=== PATIENT | female | born 1930 | race American Indian/Alaskan Native ===

== ENCOUNTER 2017-10-05 16:05 | Emergency (ER) | payer MEDICARE ==
[2017-10-05] MEDS ORDERED: ZOFRAN IV ONE (17:05)
[2017-10-05] MEDS ORDERED: MORPHINE IV ONE (17:05)
[2017-10-05 17:07] LABS: Basophils # (Auto) 0.1 K/mm3 (0.0-0.1); Basophils % (Auto) 0.7 % (0.0-1.8); Eosinophils % (Auto) 0.3 % (0.0-4.3); Hematocrit 37.7 % (30.3-42.9); Hemoglobin 12.3 gm/dl (10.1-14.3); Lymphocytes # (Auto) 0.9 K/mm3 (1.2-5.4); Lymphocytes % (Auto) 12.1 % (13.4-35.0); Mean Corpuscular HGB Conc 33 % (30-34); Mean Corpuscular Hemoglobin 29 pg (28-32); Mean Corpuscular Volume 88 fl (79-97); Monocytes # (Auto) 0.3 K/mm3 (0.0-0.8); Monocytes % (Auto) 4.6 % (0.0-7.3); Platelet Count 238 K/mm3 (140-440); Red Blood Count 4.28 M/mm3 (3.65-5.03); Red Cell Distribution Width 13.9 % (13.2-15.2)
--- NOTE | 2017-10-05 17:11 | Emergency Department Report ---
HPI - General Chief Complaint: Fall Time Seen by Provider: 10/05/17 16:49 - HPI HPI: Room 6 The patient is an 87-year-old female presenting with a chief complaint of pain after a dresser fell on top of her. The patient lives at home alone and the last time anyone spoke with her was last night at approximately 19:00. When family came to bring her lunch this afternoon at approximately 13:00 they found the patient in the bedroom floor propped up against the bed with a chest/ dresser laying on top of her. The patient has a history of dementia states she does not remember what happened. Family states the patient initially mentioned to them that she believed the event occurred at 06:30 this morning. Patient complains of pain in her head, back and abdomen for this issue hurts "all over. " ED Past Medical Hx - Past Medical History Previous Medical History?: Yes Hx Hypertension: Yes Hx GERD: Yes Hx Arthritis: Yes Hx Dementia: Yes Additional medical history: OVERACTIVE BLADDER - Surgical History Past Surgical History?: Yes Additional Surgical History: Varicose vein surgery 40 years ago - Family History Family history: no significant - Social History Smoking Status: Never Smoker Substance Use Type: None - Medications Home Medications: Home Medications Medication Instructions Recorded Confirmed Last Taken Type Atenolol [Tenormin] 100 mg PO DAILY 06/28/13 04/19/14 04/18/14 History Ranitidine HCl [Ranitidine 150mg 150 mg PO BID 06/28/13 04/19/14 04/18/14 History Cap] Hydralazine HCl [Apresoline TAB] 25 mg PO DAILY 04/18/14 04/19/14 04/18/14 History Loratadine [Claritin RAPDIS] 1 tab PO DAILY 04/18/14 04/19/14 04/18/14 History Amlodipine Bes/Olmesartan Med 1 tab PO DAILY 04/19/14 04/19/14 04/19/14 History [Phuong 10-40 mg] Amlodipine Besylate 10 mg PO DAILY 04/19/14 04/19/14 04/19/14 History Clonidine HCl 0.1 mg PO QPM 04/19/14 04/19/14 04/18/14 History traMADol [Ultram 50 MG tab] 50 mg PO Q8HR PRN 04/19/14 04/19/14 04/18/14 History HYDROcodone/APAP 5-325 [[place] 1 - 2 each PO Q6HR PRN #14 tablet 10/05/17 Unknown Rx 5/325] Ibuprofen [Motrin] 800 mg PO Q8HR PRN #20 tablet 10/05/17 Unknown Rx ED Review of Systems ROS: Stated complaint: FALL Other details as noted in HPI Gastrointestinal: abdominal pain Musculoskeletal: back pain, myalgia Skin: lesions Neurological: headache Physical Exam - Physical Exam Vital Signs: Vital Signs 10/05/17 10/05/17 16:35 16:40 Temperature 97.8 F Pulse Rate 72 Respiratory 18 Rate Blood Pressure 191/85 [Left] O2 Sat by Pulse 98 Oximetry Physical Exam: GENERAL: The patient is well-developed well-nourished female lying on stretcher not appearing to be in acute distress. [] HEENT: Normocephalic. Atraumatic. Extraocular motions are intact. Patient has moist mucous membranes. NECK: Supple. Trachea midline. No axial step off CHEST/LUNGS: Clear to auscultation. There is no respiratory distress noted. HEART/CARDIOVASCULAR: Regular. There is no tachycardia. There is no gallop rub or murmur. ABDOMEN: Abdomen is soft, nontender to palpation however patient complained of pain without palpitation. Patient has normal bowel sounds. There is no abdominal distention. SKIN: There is ecchymosis to the inner right bicep and right forearm. There is no edema. There is no diaphoresis. NEURO: The patient is awake and alert. The patient is cooperative. The patient has no focal neurologic deficits. The patient has normal speech MUSCULOSKELETAL: There is no limitation range of motion. ED Course Vital Signs 10/05/17 10/05/17 16:35 16:40 Temperature 97.8 F Pulse Rate 72 Respiratory 18 Rate Blood Pressure 191/85 [Left] O2 Sat by Pulse 98 Oximetry - Reevaluation(s) Reevaluation #1: 10/05/17 20:46 Patient states she is feeling "good." - Consultations Consultation #1: 10/05/17 20:27 Orthopedic surgery paged 10/05/17 20:[address] abdomen and pelvis findings discussed Dr. Hannah. Request patient/ family contact office for follow-up appointment this week or next ED Medical Decision Making - Lab Data Result diagrams: 10/05/17 16:52 10/05/17 16:52 Laboratory Tests 10/05/17 10/05/17 16:52 16:52 WBC 7.1 RBC 4.28 Hgb 12.3 Hct 37.7 MCV 88 MCH 29 MCHC 33 RDW 13.9 Plt Count 238 Lymph % (Auto) 12.1 L [place] % (Auto) 4.6 Eos % (Auto) 0.3 Baso % (Auto) 0.7 Lymph # 0.9 L [place] # 0.3 Eos # 0.0 Baso # 0.1 Seg Neutrophils % 82.3 H Seg Neutrophils # 5.9 Sodium 138 Potassium 4.6 Chloride 99.5 Carbon Dioxide 23 Anion Gap 20 BUN 18 H Creatinine 0.8 Estimated GFR > 60 BUN/Creatinine Ratio 23 Glucose 114 H Calcium 9.2 Total Creatine Kinase 414 H CK-MB (CK-2) 6.8 H CK-MB (CK-2) Rel Index 1.6 Troponin T < 0.010 - EKG Data -: EKG Interpreted by Oh EKG shows normal: sinus rhythm Rate: normal - EKG Data When compared to previous EKG there are: previous EKG unavailable Interpretation: other (no ischemic changes seen) - Radiology Data Radiology results: report reviewed (CT head, CT cervical spine, CT abdomen and pelvis), image reviewed (CT head, CT cervical spine, CT abdomen and pelvis) FINAL REPORT PROCEDURE: CT HEAD/BRAIN WO CON TECHNIQUE: Computerized tomography of the head was performed without contrast material. HISTORY: pain after dresser fell on top of her COMPARISON: No prior studies are available for comparison. FINDINGS: Skull and scalp: Normal. Paranasal sinuses: Normal. Ventricles and subarachnoid spaces: Normal. Cerebrum: No evidence of hemorrhage, acute infarction or mass . Cerebellum and brainstem: No evidence of hemorrhage, acute infarction or mass. Vasculature: Normal. Comments: Mild to moderate atrophy. Parafalcine calcifications. 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 No intracranial bleed or skull fracture seen Transcribed By: WEP Dictated By: TYREE NGUYEN MD Electronically Authenticated By: TYREE NGUYEN MD Signed Date/Time: 10/05/171424 DD/ 24 TD/TT: 10/05/171424 FINAL REPORT PROCEDURE: CT ABDOMEN PELVIS W CON TECHNIQUE: Computerized axial tomography of the abdomen and pelvis was performed after the IV injection of iodinated nonionic contrast. HISTORY: pain after dresser fell on top of her COMPARISON: None FINDINGS: Visualized lower thorax: No significant abnormality. Liver: Normal size and attenuation. Spleen: Normal size and attenuation. Gallbladder and biliary system: Normal. Pancreas: Normal. Adrenals: Normal. Kidneys: Normal. GI tract: Normal. Lymph nodes and mesentery: Normal. Vasculature: Normal. Bladder: Normal. Reproductive organs: Normal. Peritoneum: No free fluid. Musculoskeletal structures: Mild to moderate compression deformity upper aspect of L3. On axial sequences questionable findings to suggest possible acute on chronic component. Consider followup MRI to further corroborate. Severe disc space narrowing L4-5 L5-S1. Multilevel facet arthropathy. Chronic endplate deformities upper L2 lower T12 Other: None. IMPRESSION: Mild to moderate compression deformity of L3 of indeterminate age likely predominately chronic however mild acute on chronic fracture not excludable. Followup MRI is advised. No prior study on file. Transcribed By: WEP Dictated By: TYREE NGUYEN MD Electronically Authenticated By: TYREE NGUYEN MD Signed Date/Time: 10/05/171550 DD/ 50 TD/TT: 10/05/171550 - Differential Diagnosis rhabdomyolysis, ICH, cervical fracture, intra-abdominal injury Critical care attestation.: If time is entered above; I have spent that time in minutes in the direct care of this critically ill patient, excluding procedure time. ED Disposition Clinical Impression: Compression fracture of L3 lumbar vertebra, Thyroid mass, Contusion of right arm, Contusion of right leg, Contusion of left leg Disposition: - TO HOME OR SELFCARE Is pt being admited?: No Does the pt Need Aspirin: No Condition: Stable Instructions: Vertebral Compression Fracture (ED) Additional Instructions: Return to the emergency department immediately should you develop worsening symptoms, fever, inability to tolerate food or liquid or any other concerns. Prescriptions: HYDROcodone/APAP 5-325 [[place] 5/325] 1 - 2 each PO Q6HR PRN #14 tablet PRN Reason: Pain Ibuprofen [Motrin] 800 mg PO Q8HR PRN #20 tablet PRN Reason: Pain Referrals: MT HANNAH MD [Staff Physician] - 3-5 Days (Dr. Hannah is an orthopedic surgeon. Please follow up with him for further evaluation) Time of Disposition: 20:48
[2017-10-05 17:34] LABS: Creatine Kinase MB 6.8 ng/mL (0.0-4.0)
[2017-10-05 17:35] LABS: BUN/Creatinine Ratio 23; Blood Urea Nitrogen 18 mg/dL (7-17); Calcium 9.2 mg/dL (8.4-10.2); Hemolysis Index 4
--- NOTE | 2017-10-05 18:29 | Cat Scan Report ---
FINAL REPORT PROCEDURE: CT HEAD/BRAIN WO CON TECHNIQUE: Computerized tomography of the head was performed without contrast material. HISTORY: pain after dresser fell on top of her COMPARISON: No prior studies are available for comparison. FINDINGS: Skull and scalp: Normal. Paranasal sinuses: Normal. Ventricles and subarachnoid spaces: Normal. Cerebrum: No evidence of hemorrhage, acute infarction or mass . Cerebellum and brainstem: No evidence of hemorrhage, acute infarction or mass. Vasculature: Normal. Comments: Mild to moderate atrophy. Parafalcine calcifications. 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 No intracranial bleed or skull fracture seen
--- NOTE | 2017-10-05 19:23 | XRay Report ---
FINAL REPORT EXAM: XR FOREARM RT HISTORY: pain after dresser fell on top of her TECHNIQUE: Two views right forearm Comparison: None FINDINGS: Global osteopenia. Soft tissue swelling overlying the olecranon. No definite fracture of the long bones of the forearm, with incomplete evaluation about the wrist. IMPRESSION: No definite fracture of the right forearm, limited evaluation around the wrist. Soft tissue swelling overlying the olecranon and posterior distal humerus.
--- NOTE | 2017-10-05 19:25 | XRay Report ---
FINAL REPORT EXAM: XR HUMERUS 2+V RT HISTORY: pain after dresser fell on top of her TECHNIQUE: Two views right humerus Comparison: None FINDINGS: Global osteopenia. There is no fracture of the humeral shaft. Humeral head is mildly irregular in incompletely assessed for impaction injury. There is no radiopaque foreign body or soft tissue gas. There is incompletely assessed degenerative change in the supracondylar distal humerus and about the elbow. The radial head is on the very edge of the exam. IMPRESSION: Mild irregularity of the humeral head superiorly and laterally. An impaction injury cannot be excluded. Oblique sclerotic irregularity through the humeral head as well. Recommend dedicated shoulder films. No definite fracture of the humeral shaft. Degenerative change of the right supracondylar humerus.
--- NOTE | 2017-10-05 19:27 | XRay Report ---
FINAL REPORT EXAM: XR TIBIA FIBULA 2V LT HISTORY: pain after dresser fell on top of her TECHNIQUE: Four views left tibia and fibula Comparison: None FINDINGS: Global osteopenia. No definite fracture of the left tibia or fibula. Mild sloping of the left plafond. There is a superior patellar pole enthesophyte and arterial calcifications. There is mild infrapatellar soft tissue swelling. IMPRESSION: No definite left tibial or fibular fracture. Mild infrapatellar soft tissue swelling.
--- NOTE | 2017-10-05 19:30 | XRay Report ---
FINAL REPORT EXAM: XR FEMUR BILAT 2+V HISTORY: pain after dresser fell on top of her TECHNIQUE: Eight total views of the bilateral femurs Comparison: None FINDINGS: Global osteopenia. Bilateral femoral heads are normally located. There is mild irregularity of the right lesser trochanter on the AP projection which is not supported on the lateral projection. There is no fracture about the right knee. There are arterial calcifications. There is no definite disruption of the imaged bony pelvic ring. There is no fracture about the left knee. There is calcified uterine fibroid. IMPRESSION: Mild infrapatellar soft tissue swelling bilaterally. No definite fracture of either femur. The irregularity of the bilateral lesser trochanters on the AP images does not show to be a fracture on the lateral images. No dislocation.
--- NOTE | 2017-10-05 19:33 | XRay Report ---
FINAL REPORT EXAM: XR SPINE LUMBOSACRAL 2-3V HISTORY: pain after dresser fell on top of her TECHNIQUE: Five views lumbosacral spine Comparison: None FINDINGS: Bones are osteopenic. There is a compression fracture of the superior endplate of L3, chronicity is unknown. There is L4/L5 vacuum disc. There are no other compression fractures identified. No spondylolisthesis. Lateral films are performed cross-table. There is mild buckling of the cortex of the anterior superior L1 corner which may be degenerative. No definite abnormality is noted on the AP projection. SI joints are. Grossly unremarkable sacral arches. No definite disruption of the bony pelvic ring. IMPRESSION: L3 superior endplate compression fracture, chronicity is unknown. Mild buckle of the L1 anterior superior corner may be degenerative.. L4/L5 vacuum disc with bridging osteophytes. Otherwise, mild degenerative change
--- NOTE | 2017-10-05 19:48 | Cat Scan Report ---
FINAL REPORT PROCEDURE: CT CERVICAL SPINE WO CON TECHNIQUE: Computerized tomography of the cervical spine was performed from the skull base to T1 without contrast material. HISTORY: pain after dresser fell on top of her COMPARISON: No prior studies are available for comparison. FINDINGS: Moderate diffuse degenerative changes extending from C2 through C7. Anterior osteophytes present. Multilevel disc degenerative changes. Skull base appears intact. Chronic odontoid ligamentous calcifications. Evidence of acute fracture. Multilevel facet arthropathy neuroforaminal narrowing for which followup MRI may be warranted to further evaluate the discs nerve root sleeves. Medial ribs clavicles appear intact. Massive enlargement of the thyroid gland measuring 10 by 9 centimeters with heterogeneous appearance mixed head low-attenuation medium attenuation scattered calcifications. There is mass effect on the upper trachea post tracheal right to left. There is extension of the thyroid mass into the superior anterior mediastinum mass effect on the structures not location incompletely seen. Rule-out malignancy. Followup and further workup is advised. IMPRESSION: No acute fracture cervical spine suspected. Massive heterogeneous thyroid mass for which malignancy/malignant transformation is the diagnosis of exclusion. Followup and further workup advised of the thyroid gland mass
--- NOTE | 2017-10-05 19:55 | Cat Scan Report ---
FINAL REPORT PROCEDURE: CT ABDOMEN PELVIS W CON TECHNIQUE: Computerized axial tomography of the abdomen and pelvis was performed after the IV injection of iodinated nonionic contrast. HISTORY: pain after dresser fell on top of her COMPARISON: None FINDINGS: Visualized lower thorax: No significant abnormality. Liver: Normal size and attenuation. Spleen: Normal size and attenuation. Gallbladder and biliary system: Normal. Pancreas: Normal. Adrenals: Normal. Kidneys: Normal. GI tract: Normal. Lymph nodes and mesentery: Normal. Vasculature: Normal. Bladder: Normal. Reproductive organs: Normal. Peritoneum: No free fluid. Musculoskeletal structures: Mild to moderate compression deformity upper aspect of L3. On axial sequences questionable findings to suggest possible acute on chronic component. Consider followup MRI to further corroborate. Severe disc space narrowing L4-5 L5-S1. Multilevel facet arthropathy. Chronic endplate deformities upper L2 lower T12 Other: None. IMPRESSION: Mild to moderate compression deformity of L3 of indeterminate age likely predominately chronic however mild acute on chronic fracture not excludable. Followup MRI is advised. No prior study on file.
--- NOTE | 2017-10-05 20:57 | XRay Report ---
FINAL REPORT PROCEDURE: XR SHOULDER 2+V RT TECHNIQUE: Three-view right shoulder HISTORY: pain after dresser fell on her. COMPARISON: No prior studies are available for comparison. FINDINGS: Degenerative changes of the right shoulder including acromioclavicular glenohumeral joints. Chronic deformities superior lateral humeral head inferior glenoid fossa. No evidence of acute fracture. Arthrosis of the acromioclavicular joint. Calcifications in the superior lateral humeral head shoulder area. IMPRESSION: No acute fracture or dislocation
[2017-10-05 21:23] VITALS: BP 189/82
== END 2017-10-05 21:24 | disposition home or self-care (01) ==
LOC: ED 16:05
DX: S32.038A Other fracture of third lumbar vertebra, initial encounter for closed fracture (principal); S40.021A Contusion of right upper arm, initial encounter; S80.11XA Contusion of right lower leg, initial encounter; S80.12XA Contusion of left lower leg, initial encounter; E07.89 Other specified disorders of thyroid; K21.9 Gastro-esophageal reflux disease without esophagitis; M19.90 Unspecified osteoarthritis, unspecified site; I10 Essential (primary) hypertension; F03.90 Unspecified dementia, unspecified severity, without behavioral disturbance, psychotic disturbance, mood disturbance, and anxiety; W20.8XXA Other cause of strike by thrown, projected or falling object, initial encounter; Y93.89 Activity, other specified; Y92.89 Other specified places as the place of occurrence of the external cause; Y99.8 Other external cause status
CPT/HCPCS: 36415; 70450; 72100; 72125; 73030; 73060; 73090; 73552; 73590; 74177; 80048; 82550; 82553; 84484; 85025; 93005; 93010; 96374; 96375; 99285; J2270; J2405; Q9967